=== PATIENT | male | born 1960 | race Caucasian/White ===

== ENCOUNTER → 2022-10-03 | Outpatient (REF) | payer BC | LOC: M SFHCDERM 17:56 | PROVIDERS: ATTEND Dermatology | DX: Z51.89 Encounter for other specified aftercare (principal) ==

== ENCOUNTER → 2022-10-17 | Outpatient (REF) | payer BC | LOC: M SFHCDERM 12:44 | PROVIDERS: ATTEND Dermatology | DX: Z48.02 Encounter for removal of sutures (principal) ==

== ENCOUNTER 2023-11-05 08:10 | Day surgery (SDC) | payer BC ==
[~2023-11-05] VITALS: Ht 182.9 cm; Wt 99.8 kg
[~2023-11-05 08:10] MED LIST: ATOR1TAB19 PO; BYST2.5T2 PO; FAMO40TA3 PO; LIDOCAINE 2% 100MG/5ML SDV (FOR ANES.) As Ordered ONE; TAMS1CAP17 PO; propofoL 200 MG/20 ML VIAL As Ordered ONE
[2023-11-05] MEDS: NS 1,000 ML IV ONE (08:41)
[2023-11-05 10:20] VITALS: TEMP 96.5
[2023-11-05 10:38] VITALS: BP 133/84; O2SAT 97
== END 2023-11-05 10:53 | disposition home or self-care (01) ==
LOC: M OPP 08:10
PROVIDERS: ATTEND Surgery
DX: Z12.11 Encounter for screening for malignant neoplasm of colon (principal); Z86.010 Personal history of colon polyps; D12.2 Benign neoplasm of ascending colon; K63.5 Polyp of colon; F17.290 Nicotine dependence, other tobacco product, uncomplicated; Z79.02 Long term (current) use of antithrombotics/antiplatelets; Z79.1 Long term (current) use of non-steroidal anti-inflammatories (NSAID); Z79.82 Long term (current) use of aspirin; Z79.899 Other long term (current) drug therapy